=== PATIENT | male | born 1960 | race Caucasian/White ===

== ENCOUNTER 2017-07-15 12:19 | Inpatient (IN) | payer BC, OTHER | END 2017-07-15 17:32 | disposition left against medical advice (07) | DRG 894 | LOC: SRC 14:10 | PROVIDERS: ADMIT Internal Medicine; ATTEND Internal Medicine | DX: F10.20 Alcohol dependence, uncomplicated (principal); E66.9 Obesity, unspecified; F12.20 Cannabis dependence, uncomplicated; Z83.3 Family history of diabetes mellitus; K42.9 Umbilical hernia without obstruction or gangrene; M19.90 Unspecified osteoarthritis, unspecified site; I10 Essential (primary) hypertension; E78.5 Hyperlipidemia, unspecified; F17.211 Nicotine dependence, cigarettes, in remission ==